=== PATIENT | female | born 1985 | race Caucasian/White ===

== ENCOUNTER 2024-12-04 08:16 | Emergency (ER) | payer MEDICAID, SELFPAY ==
[2024-12-04 08:18] VITALS: BMI 24.7
[2024-12-04 08:34] VITALS: BP 110/67; PULSE 100; RESP 17; TEMP 36.9; O2SAT 98
[2024-12-04 08:35] VITALS: BMI 24.0
--- NOTE | 2024-12-04 08:53 | EDNOTE_ITS ---
<Statement entered by Cindy Cole MD - 12/08/24 07:24> As co-signing physician, I was present and available for consult prn. I concur with the plan and care as documented by the midlevel provider. Upper Respiratory Inf. RME/HPI General Chief Complaint: Shortness of Breath/Dyspnea Stated Complaint: SOB, COUGH, BACK PAIN, FEVER, Time Seen by Provider: 12/04/24 08:29 Source: patient Arrival date/time: 12/04/24 08:16 This is a 39-year-old female presents to the emergency department with complaints of shortness of breath, cough upper back pain. She does report that on Saturday she tested positive for RSV at [facility] had other swabs and x-ray. However states her symptoms have not improved and now is having upper back pain and increased cough. Denies chest pain, dyspnea. Has been using albuterol at home. Mode of arrival: ambulatory Limitations: no limitations Related Data Home Medications ?Medication ?Instructions ?Recorded ?Confirmed fluticasone furoate 200 1 inh inhalation QDAY 08/07/20 mcg-vilanterol 25 mcg/dose inhalation powder (Breo Ellipta) Previous Rx's ?Medication ?Instructions ?Recorded hydrocodone 5 mg-acetaminophen 325 1 tab PO Q8H PRN pa in #30 tabs 10/20 mg tablet ([place]) hydrocodone 5 mg-acetaminophen 325 1 tab PO Q8H PRN pa in #30 tabs 1010/20 mg tablet ([place]) hydrocodone 5 mg-acetaminophen 325 1 tab PO TID PRN pa in #30 tabs 08/06/20 mg tablet ([place]) ibuprofen 800 mg tablet (IBU) 800 mg PO TID #30 tabs 1 ibuprofen 800 mg tablet (IBU) 800 mg PO TID #30 tabs 1 magnesium citrate 150 ml PO BID PRN constipati on 08/10/20 #296 mL cefuroxime axetil 500 mg tablet 500 mg PO BID #20 tabs 10/21/20 doxycycline monohydrate 100 mg 100 mg PO BID #42 caps 10/21/20 capsule ibuprofen 800 mg tablet 800 mg PO Q8H PRN pain #30 t abs 04/27/21 acetaminophen 500 mg capsule 500 mg PO QID PRN fever o r pain 11/10/21 #30 caps azithromycin 250 mg tablet See Rx Instructions PO .COM PLEX #6 11/10/21 tabs diphenhydramine HCl 25 mg capsule 25 mg PO Q8H PRN all ergic symptoms 03/23/22 (Benadryl) #30 caps azithromycin 250 mg tablet See Rx Instructions PO .COM PLEX #6 09/02/22 (Zithromax Z-Eddie) tabs promethazine-DM 6.25 mg-15 mg/5 mL 5 ml PO Q6H #240 mL 09/02/22 oral syrup ofuubftzdzxw-bvpsymtqldjcp-dxumxwc 5 ml PO Q6H PRN cou gh #120 mL 09/02/22 6.25 mg-5 mg-10 mg/5 mL oral syrup (Promethazine VC-Codeine) azithromycin 250 mg tablet See Rx Instructions PO .COM PLEX #6 03/15/23 (Zithromax Z-Eddie) tabs rizatriptan 10 mg tablet (Maxalt) 10 mg PO Q2H PRN darling bandar headache 03/15/23 #14 tabs ciprofloxacin HCl 500 mg tablet 500 mg PO BID #20 tabs 06/24/23 (Cipro) metronidazole 500 mg tablet 500 mg PO TID #21 tabs ibuprofen 600 mg tablet 600 mg PO Q6H #30 tabs 05/04 azithromycin 250 mg tablet 250 mg PO QDAY 5 days #6 ta bs 12/04/24 ibuprofen 600 mg tablet 600 mg PO Q8H PRN fever or p ain 12/04/24 #30 tabs prednisone 20 mg tablet 40 mg (2 x 20 mg) PO QDAY 3 days 12/04/24 #6 tabs promethazine-DM 6.25 mg-15 mg/5 mL 5 ml PO Q6H PRN cou gh #118 mL 12/04/24 oral syrup Allergies Allergy/AdvReac Type Severity Reaction Status Date / Time Sulfa (Sulfonamide Allergy Severe Difficulty Verified 12/04/24 08:17 Antibiotics) Breathing Review of Systems Review of Systems Systems Reviewed: All systems reviewed, normal except as documented Narrative Review of Systems: , Gen: No fever, no chills, no weight loss EYES: No discharge, no visual changes, no pain HEENT: No ear pain, no congestion, no sore throat PULM: No shortness of breath, + cough, no congestion, + upper back pain CV: No chest pain, no dyspnea on exertion, no palpitations GI: No nausea, no vomiting, no diarrhea, no pain, no constipation : No frequency, no urgency,? no dysuria Musc/skel: No joint pain, no back pain Skin: No rash? ED Exam General Limitations: Present no limitations General appearance: Present alert and in no apparent distress Head Head exam: Present atraumatic Eye Eye exam: Present normal appearance, PERRL and EOMI ENT ENT exam: Present normal exam, normal oropharynx and mucous membranes moist Neck Neck exam: Present normal inspection, full ROM and trachea midline Chest Chest inspection: Present normal inspection and symmetric chest wall rise Respiratory Respiratory exam: Present normal lung sounds bilaterally Cardiovascular Cardiovascular exam: Present regular rate, normal rhythm and normal heart sounds Abdominal Exam Abdominal exam: Present soft and normal bowel sounds Extremities Exam Extremities exam: Present normal inspection and full ROM Back Exam Back exam: Present normal inspection and full ROM Neurological Exam Neurological exam: Present alert, oriented X3 and CN II-XII intact Psychiatric Psychiatric exam: Present normal affect and normal mood Skin Skin exam: Present warm, dry, intact and normal color Course Quality Measures none Orders Category Date Time Status XR chest 2V Stat Exams 12/04/24 08:54 Completed Vital Signs Vital signs: Vital Signs Temperature 98.5 F 12/04/24 08:34 Pulse Rate 100 12/04/24 08:34 Respiratory Rate 17 12/04/24 08:34 Blood Pressure 110/67 12/04/24 08:34 Pulse Oximetry (%) 98 12/04/24 08:34 Oxygen Delivery Method Room Air 12/04/24 08:34 Upper Respiratory Infection MDM Narrative MDM Narrative:: 39-year-old female presents to the emergency department with complaints of upper back pain associated with her cough. She states she was diagnosed with RSV on Saturday reports her symptoms are lingering and now complaints of pain. Patient did not attempt any interventions or take any OTC medications prior to ED visit. Patient appears well, vital signs stable no hypoxia. I did obtain a secondary x-ray to make sure there is no starting of pneumonia. X-ray was negative. Reassured patient her pain is most likely secondary to her cough. adjunctive medication was sent to pharmacy advised to follow-up with her PCP Return to the emergency department this any worsening symptoms change in condition Patient data External records reviewed:: [facility] previous records Clinical information provided by:: patient Social determinants that could affect healthcare access:: none Patient has the following chronic illnesses:: No How is presenting disease/condition affected by chronic disease/condition?: no chronic disease Evaluation data The following diagnostics were reviewed and interpreted by me:: radiology exam(s) Lab and/or radiology exams considered but not ordered:: No Interpretation Summary: Examination: PA lateral chest 2 views TECHNIQUE: Upright PA lateral chest 2 views Exam date and time: December 04, 2024 0905 hours INDICATIONS: Shortness of breath fever beginning 2 days ago. FINDINGS: Normal heart size. Lungs are clear. The osseous structures are intact IMPRESSION: No active disease Medications / Prescriptions Medications or Prescriptions considered but not ordered:: No Medication administrations:: No Consultations Consultation(s) initiated? (list below): No Diagnosis Upper Respiratory Differential Diagnosis: upper respiratory infection, viral infection, bronchitis, influenza and pharyngitis Most likely diagnosis given after review of the tests above:: RSV bronchitis Admission Indicated Admission indicated?: not indicated Admission Request Was there a request for admission?: No Disposition Plan Disposition Plan: Discharge Discharge Attestation Discharge Attestation: The patient and all family members were given an opportunity to ask questions and understood the discharge instructions. Discharge instructions specifically effects, indications for sooner follow up or return to the emergency department, and the expected course of current diagnosis. Patient condition: Stable Discharge Plan Plan Patient Disposition: HOME (Self Care) Patient condition on transfer: Stable Prescriptions/Referrals Prescriptions/Med Rec: New promethazine-DM 6.25-15 mg/5 mL syrup 5 ml PO Q6H PRN (Reason: cough) Qty: 118 0RF prednisone 20 mg tablet 40 mg PO QDAY 3 Days Qty: 6 0RF ibuprofen 600 mg tablet 600 mg PO Q8H PRN (Reason: fever or pain) Qty: 30 0RF azithromycin 250 mg tablet 250 mg PO QDAY 5 Days Qty: 6 0RF Rx Instructions: 500 mg p.o. day 1, 250 mg p.o. daily for 4 days No Action Breo Ellipta 200-25 mcg/dose Blister With Device 1 inh INHALATION QDAY hydrocodone-acetaminophen [[place]] 5-325 mg tablet 1 tab PO Q8H MDD 6 PRN (Reason: pain) Qty: 30 0RF ibuprofen [IBU] 800 mg tablet 800 mg PO TID Qty: 30 0RF hydrocodone-acetaminophen [[place]] 5-325 mg tablet 1 tab PO TID MDD 6 PRN (Reason: pain) Qty: 30 0RF ibuprofen [IBU] 800 mg tablet 800 mg PO TID Qty: 30 0RF hydrocodone-acetaminophen [[place]] 5-325 mg tablet 1 tab PO Q8H MDD 6 PRN (Reason: pain) Qty: 30 0RF magnesium citrate Solution 150 ml PO BID PRN (Reason: constipation) Qty: 296 0RF doxycycline monohydrate 100 mg capsule 100 mg PO BID Qty: 42 0RF cefuroxime axetil 500 mg tablet 500 mg PO BID Qty: 20 0RF ibuprofen 800 mg tablet 800 mg PO Q8H PRN (Reason: pain) Qty: 30 0RF azithromycin 250 mg tablet See Rx Instructions .ROUTE .COMPLEX Qty: 6 0RF Rx Instructions: For 250 mg dose pack: take 500 mg today (day 1), then 250 mg for 4 days (days 2-5) acetaminophen 500 mg capsule 500 mg PO QID PRN (Reason: fever or pain) Qty: 30 0RF diphenhydramine HCl [Benadryl] 25 mg capsule 25 mg PO Q8H PRN (Reason: allergic symptoms) Qty: 30 0RF metronidazole 500 mg tablet 500 mg PO TID Qty: 21 0RF ciprofloxacin HCl [Cipro] 500 mg tablet 500 mg PO BID Qty: 20 0RF dnbvnpugladk-plmkbrnfd-uipyirn [Promethazine VC-Codeine] 6.25-5-10 mg/5 mL syrup 5 ml PO Q6H PRN (Reason: cough) Qty: 120 0RF azithromycin [Zithromax Z-Eddie] 250 mg tablet See Rx Instructions PO .COMPLEX Qty: 6 0RF Rx Instructions: take 500 mg today (day 1), then 250 mg for 4 days (days 2-5) promethazine-DM 6.25-15 mg/5 mL syrup 5 ml PO Q6H Qty: 240 0RF azithromycin [Zithromax Z-Eddie] 250 mg tablet See Rx Instructions .ROUTE .COMPLEX Qty: 6 0RF Rx Instructions: For 250 mg dose pack: take 500 mg today (day 1), then 250 mg for 4 days (days 2-5) rizatriptan [Maxalt] 10 mg tablet 10 mg PO Q2H PRN (Reason: migraine headache) Qty: 14 0RF Rx Instructions: do not exceed 3 doses per 24 hrs ibuprofen 600 mg tablet 600 mg PO Q6H Qty: 30 0RF Problem List Clinical Impression: Bronchitis Patient/Caregiver Discharge Instructions Discharge Activity: activity as tolerated Education Materials: ED Upper Resp Infec Abx Tx Additional Instructions: It appears that you have bronchitis. Most likely secondary to your RSV infection. I did send a couple of prescriptions to the pharmacy please slat pickler and take medication as directed. There is no pneumonia on your x-ray. Follow-up with your clinic 2 days or on Saturday. Return to the emergency department this any worsening symptoms change in condition. Print Language: Burkinan Stand Alone Forms: Veronique Award Info., Patient Portal Info Letter PA/DEBRANDER Supervising Physician PA/DEBRANDER Supervising Physician: Dr. Jones
== END 2024-12-04 09:28 | disposition home or self-care (01) ==
LOC: SERX 09:42
PROVIDERS: Emergency Provider Emergency Medicine; PCP Physician Assistant
DX: J40 Bronchitis, not specified as acute or chronic (principal)
CPT/HCPCS: 71046; 99283

== ENCOUNTER 2024-12-29 18:37 | Emergency (ER) | payer MEDICAID, SELFPAY ==
[2024-12-29 19:10] VITALS: BP 118/76; PULSE 118; RESP 18; TEMP 37.7; O2SAT 99; BMI 25.2
--- NOTE | 2024-12-29 19:38 | PD.EDURI ---
Upper Respiratory Inf. RME/HPI General Chief Complaint: Fever Stated Complaint: FEVER, WEAK LEGS, [place], CHEST HURTS, THROAT GALLO Time Seen by Provider: 12/29/24 19:30 Arrival date/time: 12/29/24 18:37 39F with history of asthma presents to ED with 2 days of cough, fevers/chills, generalized body pains/aches, sore throat, and STANTON. Son has similar symptoms. Limitations: no limitations Related Data Home Medications ?Medication ?Instructions ?Recorded ?Confirmed fluticasone furoate 200 1 inh inhalation QDAY 08/06/20 08/07/20 mcg-vilanterol 25 mcg/dose inhalation powder (Breo Ellipta) Previous Rx's ?Medication ?Instructions ?Recorded hydrocodone 5 mg-acetaminophen 325 1 tab PO Q8H PRN pain #30 tabs 10/10/20 mg tablet ([place]) hydrocodone 5 mg-acetaminophen 325 1 tab PO Q8H PRN pain #30 tabs 10/10/20 mg tablet ([place]) hydrocodone 5 mg-acetaminophen 325 1 tab PO TID PRN pain #30 tabs 10/10/20 mg tablet ([place]) ibuprofen 800 mg tablet (IBU) 800 mg PO TID #30 tabs 08/06/20 ibuprofen 800 mg tablet (IBU) 800 mg PO TID #30 tabs 08/06/20 magnesium citrate 150 ml PO BID PRN constipation 08/10/20 #296 mL cefuroxime axetil 500 mg tablet 500 mg PO BID #20 tabs 10/21/20 doxycycline monohydrate 100 mg 100 mg PO BID #42 caps 10/21/20 capsule ibuprofen 800 mg tablet 800 mg PO Q8H PRN pain #30 tabs 04/27/21 acetaminophen 500 mg capsule 500 mg PO QID PRN fever or pain 11/10/21 #30 caps azithromycin 250 mg tablet See Rx Instructions PO .COMPLEX #6 11/10/21 tabs diphenhydramine HCl 25 mg capsule 25 mg PO Q8H PRN allergic symptoms 03/23/22 (Benadryl) #30 caps azithromycin 250 mg tablet See Rx Instructions PO .COMPLEX #6 09/02/22 (Zithromax Z-Eddie) tabs promethazine-DM 6.25 mg-15 mg/5 mL 5 ml PO Q6H #240 mL 09/02/22 oral syrup eiyyxicvqmde-hghbexlgvvaxs-nutclkn 5 ml PO Q6H PRN cough #120 mL 09/02/22 6.25 mg-5 mg-10 mg/5 mL oral syrup (Promethazine VC-Codeine) azithromycin 250 mg tablet See Rx Instructions PO .COMPLEX #6 03/15/23 (Zithromax Z-Eddie) tabs rizatriptan 10 mg tablet (Maxalt) 10 mg PO Q2H PRN migraine headache 03/15/23 #14 tabs ciprofloxacin HCl 500 mg tablet 500 mg PO BID #20 tabs 06/24/23 (Cipro) metronidazole 500 mg tablet 500 mg PO TID #21 tabs 06/24/23 ibuprofen 600 mg tablet 600 mg PO Q6H #30 tabs 05/04/24 ibuprofen 600 mg tablet 600 mg PO Q8H PRN fever or pain 12/04/24 #30 tabs promethazine-DM 6.25 mg-15 mg/5 mL 5 ml PO Q6H PRN cough #118 mL 12/04/24 oral syrup oseltamivir 75 mg capsule (Tamiflu) 75 mg PO BID 5 days #10 caps 12/29/24 Allergies Allergy/AdvReac Type Severity Reaction Status Date / Time Sulfa (Sulfonamide Allergy Severe Difficulty Verified 12/29/24 18:41 Antibiotics) Breathing Review of Systems Review of Systems Systems Reviewed: All systems reviewed, normal except as documented Constitutional Constitutional: Reports system reviewed and no additional complaints, except as documented, Reports as per HPI, Reports body ache(s), Reports chills, Reports fatigue, Reports fever(s) and Reports headache(s) ENT Ears, Nose, Mouth, and Throat: Reports as per HPI, Denies disequilibrium, Reports headache(s) and Reports sore throat Cardiovascular Cardiovascular: Reports system reviewed and no additional complaints, except as documented, Denies chest pain and Denies dyspnea Respiratory Respiratory: Reports system reviewed and no additional complaints, except as documented, Reports as per HPI, Reports cough and Denies dyspnea Gastrointestinal Gastrointestinal: Reports system reviewed and no additional complaints, except as documented, Denies abdominal pain, Denies nausea and Denies vomiting Neurologic Neurologic: Reports system reviewed and no additional complaints, except as documented, Denies confusion, Denies disequilibrium and Reports headache(s) Psychiatric Psychiatric: Denies confusion Endocrine Endocrine: Reports fatigue Past Medical History Past Medical History NEUROLOGIC: Negative Neurological Disorders, Brain Tumor, Meningitis or Seizures CARDIAC: Negative Cardiac Disorders or Congestive Heart Failure RESPIRATORY: Positive Asthma, Bronchitis and Pneumonia; Negative Chronic Obstructive Pulmonary Disease (COPD) or Cough GASTROINTESTINAL: Positive Gastrointestinal Disorders, Colitis and Hemorrhoids GENITOURINARY: Negative Genitourinary Disorders or Renal Disease REPRODUCTIVE: Positive Gonorrhea, Pelvic Inflammatory Disease and Previous Pregnancies MUSCULOSKELETAL: Positive Musculoskeletal Disorders and Degenerative Disk Disease ENDOCRINE: Negative Endocrine Disorders, Diabetes Mellitus Type 1 or Diabetes Mellitus Type 2 HEMATOLOGIC: Negative Blood Disorders or Sickle Cell Disease PSYCHO/SOCIAL: Positive Depression; Negative Psychiatric Problems OTHER HISTORY: Positive Shingles and Chicken Pox; Negative Hospitalization, Autoimmune Disease, Blood Transfusions, Blood Transfusion Reaction, Anesthesia Reactions, Clostridium Difficile or Cancer Family History FAMILY HISTORY: Positive Family Psychiatric Problems, Family Respiratory Disorders, Family Cardiac Disorders and Family Cancer; Negative Family Gastrointestinal Problems, Family Surgery or Family Anesthesia Reaction Surgical History SURGICAL: Negative Endocrine Surgery or Joint Replacement Social History SMOKING STATUS: Former smoker SUBSTANCE USE: methamphetamine (Moderately frequently until approximately 1 week ago) ED Exam General Limitations: Present no limitations General appearance: Present alert and in no apparent distress Head Head exam: Present atraumatic Eye Eye exam: Present normal appearance, PERRL and EOMI ENT ENT exam: Present normal exam, normal oropharynx and mucous membranes moist Neck Neck exam: Present normal inspection, full ROM and trachea midline Chest Chest inspection: Present normal inspection and symmetric chest wall rise Respiratory Respiratory exam: Present normal lung sounds bilaterally Cardiovascular Cardiovascular exam: Present regular rate, normal rhythm and normal heart sounds Abdominal Exam Abdominal exam: Present soft and normal bowel sounds Extremities Exam Extremities exam: Present normal inspection and full ROM Back Exam Back exam: Present normal inspection and full ROM Neurological Exam Neurological exam: Present alert, oriented X3 and CN II-XII intact Psychiatric Psychiatric exam: Present normal affect and normal mood Skin Skin exam: Present warm, dry, intact and normal color Course Quality Measures none Orders Category Date Time Status Bedside Influenza A&B Antigen Test NOW Care 12/29/24 18:54 Completed Ibuprofen Tab [Motrin Tab] Med 12/29/24 19:30 Discontinued 600 mg PO X1 ONE Oseltamivir [Tamiflu] Med 12/29/24 19:31 Discontinued 75 mg PO X1 ONE Vital Signs Vital signs: Vital Signs Temperature 99.8 F 12/29/24 19:10 Pulse Rate 118 H 12/29/24 19:10 Respiratory Rate 18 12/29/24 19:10 Blood Pressure 118/76 12/29/24 19:10 Pulse Oximetry (%) 99 12/29/24 19:10 Oxygen Delivery Method Room Air 12/29/24 19:10 O2 at 99% on RA and WNLs Upper Respiratory Infection MDM Narrative MDM Narrative:: 39F with history of asthma presents to ED with 2 days of cough, fevers/chills, generalized body pains/aches, sore throat, and [place]. Son has similar symptoms. Physical exam reveals clear ENT and lungs. RRR. Normal WOB. Patient is afebrile, calm, and alert. Flu A+. Meds and job counselor given. Will given Tamiflu given asthma history. Patient data External records reviewed:: [facility] previous records Clinical information provided by:: patient Social determinants that could affect healthcare access:: none Patient has the following chronic illnesses:: asthma How is presenting disease/condition affected by chronic disease/condition?: exacerbated by Evaluation data The following diagnostics were reviewed and interpreted by me:: lab results Lab and/or radiology exams considered but not ordered:: ordered Interpretation Summary: above Medications / Prescriptions Medications or Prescriptions considered but not ordered:: ordered Medication administrations:: Medication Administration History Discontinued Medications Ibuprofen (Ibuprofen Tab 600 Mg Tablet) 600 mg PO X1 ONE Stop: 12/29/24 19:31 Oseltamivir Phosphate (Oseltamivir 75 Mg Capsule) 75 mg PO X1 ONE Stop: 12/29/24 19:32 above Consultations Consultation(s) initiated? (list below): No Diagnosis Upper Respiratory Differential Diagnosis: upper respiratory infection, croup, otitis media, sinusitis, viral infection, bronchitis, influenza and pharyngitis Most likely diagnosis given after review of the tests above:: flu A Admission Indicated Admission indicated?: not indicated Admission Request Was there a request for admission?: No Disposition Plan Disposition Plan: Discharge Discharge Attestation Discharge Attestation: The patient and all family members were given an opportunity to ask questions and understood the discharge instructions. Discharge instructions specifically effects, indications for sooner follow up or return to the emergency department, and the expected course of current diagnosis. Patient condition: Stable Discharge Plan Plan Patient Disposition: HOME (Self Care) Disposition Comment: Stable Prescriptions/Referrals Prescriptions/Med Rec: New oseltamivir [Tamiflu] 75 mg capsule 75 mg PO BID 5 Days Qty: 10 0RF No Action Breo Ellipta 200-25 mcg/dose Blister With Device 1 inh INHALATION QDAY hydrocodone-acetaminophen [[place]] 5-325 mg tablet 1 tab PO Q8H MDD 6 PRN (Reason: pain) Qty: 30 0RF ibuprofen [IBU] 800 mg tablet 800 mg PO TID Qty: 30 0RF hydrocodone-acetaminophen [[place]] 5-325 mg tablet 1 tab PO TID MDD 6 PRN (Reason: pain) Qty: 30 0RF ibuprofen [IBU] 800 mg tablet 800 mg PO TID Qty: 30 0RF hydrocodone-acetaminophen [[place]] 5-325 mg tablet 1 tab PO Q8H MDD 6 PRN (Reason: pain) Qty: 30 0RF magnesium citrate Solution 150 ml PO BID PRN (Reason: constipation) Qty: 296 0RF doxycycline monohydrate 100 mg capsule 100 mg PO BID Qty: 42 0RF cefuroxime axetil 500 mg tablet 500 mg PO BID Qty: 20 0RF ibuprofen 800 mg tablet 800 mg PO Q8H PRN (Reason: pain) Qty: 30 0RF azithromycin 250 mg tablet See Rx Instructions .ROUTE .COMPLEX Qty: 6 0RF Rx Instructions: For 250 mg dose pack: take 500 mg today (day 1), then 250 mg for 4 days (days 2-5) acetaminophen 500 mg capsule 500 mg PO QID PRN (Reason: fever or pain) Qty: 30 0RF diphenhydramine HCl [Benadryl] 25 mg capsule 25 mg PO Q8H PRN (Reason: allergic symptoms) Qty: 30 0RF metronidazole 500 mg tablet 500 mg PO TID Qty: 21 0RF ciprofloxacin HCl [Cipro] 500 mg tablet 500 mg PO BID Qty: 20 0RF nrqumjrcfprn-gydcxtgpl-glmgtjj [Promethazine VC-Codeine] 6.25-5-10 mg/5 mL syrup 5 ml PO Q6H PRN (Reason: cough) Qty: 120 0RF azithromycin [Zithromax Z-Eddie] 250 mg tablet See Rx Instructions PO .COMPLEX Qty: 6 0RF Rx Instructions: take 500 mg today (day 1), then 250 mg for 4 days (days 2-5) promethazine-DM 6.25-15 mg/5 mL syrup 5 ml PO Q6H Qty: 240 0RF azithromycin [Zithromax Z-Eddie] 250 mg tablet See Rx Instructions .ROUTE .COMPLEX Qty: 6 0RF Rx Instructions: For 250 mg dose pack: take 500 mg today (day 1), then 250 mg for 4 days (days 2-5) rizatriptan [Maxalt] 10 mg tablet 10 mg PO Q2H PRN (Reason: migraine headache) Qty: 14 0RF Rx Instructions: do not exceed 3 doses per 24 hrs ibuprofen 600 mg tablet 600 mg PO Q6H Qty: 30 0RF promethazine-DM 6.25-15 mg/5 mL syrup 5 ml PO Q6H PRN (Reason: cough) Qty: 118 0RF ibuprofen 600 mg tablet 600 mg PO Q8H PRN (Reason: fever or pain) Qty: 30 0RF Referrals: No Primary/Family,Physician [Primary Care Provider] - In 1 week Problem List Clinical Impression: Influenza A Patient/Caregiver Discharge Instructions Education Materials: ED Influenza (Adult) Additional Instructions: Please follow-up with PCP within 24-48 hours and return immediately if symptoms worsen. Ibuprofen/Tylenol can be used simultaneously for greater fever/pain control. Benadryl is good for cough, congestion, and sleep. Print Language: [place] Stand Alone Forms: Work/School Release, Patient Portal Info Letter PA/PAGEANT DIRECTOR Supervising Physician PA/NATHANIEL Supervising Physician: Dr. Burks
[2024-12-29] MEDS: OSELTAMIVIR 75 MG CAPSULE PO (19:46)
[2024-12-29] MEDS: IBUPROFEN TAB 600 MG TABLET PO (19:46)
== END 2024-12-29 19:58 | disposition home or self-care (01) ==
PROVIDERS: Emergency Provider Emergency Medicine
DX: J10.1 Influenza due to other identified influenza virus with other respiratory manifestations (principal); Z87.891 Personal history of nicotine dependence
CPT/HCPCS: 87400; 99283; A9270

== ENCOUNTER → 2025-06-02 | Outpatient (CLI) | payer MEDICAID, SELFPAY ==
--- NOTE | 2025-06-02 08:45 | XR_ITS ---
Examination: Diagnostic digital mammography, bilateral Computer aided detection 3-D breast Tomosynthesis, bilateral Date and time of exam: June 02, 2025 0829 hours INDICATIONS: Right breast lumps several years Technique: Nonmagnified MLO, CC views of the breasts to been obtained, reconstructed from 3-D Tomosynthesis images. R2 computer aided detection program utilized for evaluation of suspicious masses and/or abnormal calcifications. 3-D Tomosynthesis images obtained. Findings: Scattered areas of fibroglandular density. 14 mm focal asymmetry upper left breast MLO view, 8.6 cm from the nipple, likely outer left breast on the CC view Impression: BI-RADS Category 0: Incomplete: Need additional imaging evaluation Recommend follow-up spot tomographic views upper outer quadrant left breast to assess focal asymmetry left breast described above Recommend bilateral breast sonography follow-up.
== END | disposition home or self-care (01) ==
DX: N64.89 Other specified disorders of breast (principal)
CPT/HCPCS: 77062; 77066; G0279

== ENCOUNTER → 2025-08-09 | Outpatient (CLI) | payer MEDICAID, SELFPAY ==
--- NOTE | 2025-08-09 10:30 | XR_ITS ---
Examination: Breast ultrasound complete, bilateral Date and time of exam: August 26, 2025, 11:40 a.m. INDICATIONS: Mammogram June 02, 2000 2514 mm focal asymmetry upper left breast MLO view, patient states right breast lump 6 o'clock position 8 months Technique: Real-time grayscale ultrasonographic imaging bilateral breasts, including all 4 quadrants as well as nipple retroareolar and axillary regions. Findings: Sonographic images right and left breast demonstrate no cystic or solid masses IMPRESSION: BI-RADS Category 1: Negative study
--- NOTE | 2025-08-09 11:30 | XR_ITS ---
Examination: Diagnostic digital mammography, unilateral, left Computer aided detection 3-D breast Tomosynthesis, unilateral Date and time of exam: 08/09/2025, 11:20 a.m. Comparisons May 2025: Indications: Further evaluation of abnormality seen on recent screening mammogram Technique: Nonmagnified MLO, CC views of the left breast have been obtained, reconstructed from 3-D Tomosynthesis images. R2 computer aided detection program utilized for evaluation of suspicious masses and/or abnormal calcifications. 3-D Tomosynthesis images obtained. Technologist: Findings: There are scattered areas of fibroglandular density. No evidence of abnormal masses or suspicious calcifications. The previously described abnormality does not persist on spot compression views and represents superposition of normal fibroglandular tissue. Impression: BI-RADS category 1: Negative findings (within normal) Recommend 1 year follow-up mammogram
== END | disposition home or self-care (01) ==
LOC: CDIM 11:14
DX: R92.313 Mammographic fatty tissue density, bilateral breasts (principal)
CPT/HCPCS: 76641; 77061; 77065; G0279